=== PATIENT | male | born 2000 | race Hispanic/Latino ===

== ENCOUNTER 2024-05-06 14:13 | Emergency (ER) | payer SELFPAY ==
[~2024-05-06] VITALS: Ht 172.7 cm; Wt 103.4 kg
[2024-05-06 14:14] VITALS: BP 128/64; PULSE 82; RESP 16; TEMP 98; O2SAT 97
[2024-05-06] MEDS: ketOROlac 15MG/ML VIAL (15MG/ML) IM ONE (15:23)
[2024-05-06] MEDS ORDERED: METH-811 PO (15:59)
[2024-05-06] MEDS: methoCARBamol 500 MG TABLET PO SCH (16:06)
== END 2024-05-06 16:12 | disposition home or self-care (01) ==
LOC: EDH 14:13
DX: S33.5XXA Sprain of ligaments of lumbar spine, initial encounter (principal); M54.50 Low back pain, unspecified; X58.XXXA Exposure to other specified factors, initial encounter; Y93.89 Activity, other specified; Y92.89 Other specified places as the place of occurrence of the external cause; Y99.8 Other external cause status
CPT/HCPCS: 99284; 72110; 72190; 96372; J1885